=== PATIENT | female | born 1965 ===

== ENCOUNTER 2019-12-16 14:38 | Emergency (ER) | payer SELFPAY ==
[~2019-12-16] VITALS: Ht 157.5 cm; Wt 100.0 kg
[2019-12-16 14:50] VITALS: BP 121/59; Ht 157.5 cm; Wt 100.0 kg
[2019-12-16] MEDS ORDERED: LISINOPRIL-HCT1 EAC7 PO (14:52)
[2019-12-16] MEDS ORDERED: HYDROCODON-ACE1 EAC7 PO (16:00)
[2019-12-16] MEDS ORDERED: ZPAK PO (16:00)
[2019-12-16] MEDS ORDERED: AUGMENTIN 875-11 TAB PO (16:00)
== END 2019-12-16 18:40 | disposition home or self-care (01) ==
LOC: D.ER 14:38
DX: S60.511A Abrasion of right hand, initial encounter (principal); S61.451A Open bite of right hand, initial encounter; W55.01XA Bitten by cat, initial encounter; Y93.9 Activity, unspecified; Y92.9 Unspecified place or not applicable; L03.113 Cellulitis of right upper limb; I10 Essential (primary) hypertension; J45.909 Unspecified asthma, uncomplicated

== ENCOUNTER 2019-12-31 11:59 | Emergency (ER) | payer SELFPAY ==
[~2019-12-31] VITALS: Ht 157.5 cm; Wt 81.8 kg
[~2019-12-31 11:59] MED LIST: AUGMENTIN 875-11 TAB PO; HYDROCODON-ACE1 EAC7 PO; LISINOPRIL-HCT1 EAC7 PO; ZPAK PO
[2019-12-31 12:13] VITALS: Ht 157.5 cm; Wt 81.8 kg
[2019-12-31 13:22] LABS: ANION GAP 11.8 mmol/L (8-16); CALCIUM 9.8 mg/dL (8.5-10.1); CARBON DIOXIDE 27.1 mmol/L (21.0-32.0); CREATININE - SERUM 0.9 mg/dL (0.6-1.3); POTASSIUM - SERUM 3.9 mmol/L (3.5-5.1)
[2019-12-31 13:27] LABS: BASOPHILS 0.3 % (0-2); EOSINOPHILS 0.5 % (0-7); HEMATOCRIT 41.1 % (36.0-48.0); HEMOGLOBIN 13.3 g/dL (12-16); IMMATURE GRANULOCYTES 0.1 % (0-5); LYMPHOCYTES 18.9 % (15-50); MCH 29.1 pg (26.0-34.0); MCHC 32.4 g/dL (31.0-37.0); MCV 89.9 fL (80.0-100.0); MEAN PLATELET VOLUME 9.2 fL (7.4-10.4); MONOCYTES 6.5 % (2-11); NEUTROPHILS 73.7 % (40-80); PLATELET COUNT 448 10x3/uL (130-400); RBC 4.57 10x6/uL (4.00-5.40); RDW 13.1 % (11.5-14.5); WBC 8.6 10x3/uL (4.8-10.8)
[2019-12-31 13:28] LABS: ALBUMIN 3.8 g/dL (3.4-5.0); BILIRUBIN - TOTAL 0.39 mg/dL (0.2-1.3); C-REACTIVE PROTEIN 0.4 mg/dL (0.0-0.9); PROTEIN - SERUM 9.1 g/dL (6.4-8.2)
[2019-12-31] MEDS ORDERED: CLEOCIN HCL300 MG PO (15:07)
[2019-12-31] MEDS ORDERED: AUGMENTIN 875-11 TAB PO (15:07)
[2019-12-31 15:52] VITALS: BP 148/80
== END 2019-12-31 15:53 | disposition home or self-care (01) ==
LOC: D.ER 11:59
PROVIDERS: Family Medicine
DX: L03.113 Cellulitis of right upper limb (principal); I10 Essential (primary) hypertension; J45.909 Unspecified asthma, uncomplicated